=== PATIENT | male | born 1965 | race African-American/Black ===

== ENCOUNTER 2017-06-12 00:33 | Emergency (ER) | payer SELFPAY ==
[2017-06-12] MEDS ORDERED: diphenhydrAMINE HCl 25 MG CAP ONE (01:27)
[2017-06-12 01:39] LABS: INR-International Normal Ratio 1.1; PTT 27.1 SEC (22.9-36.1); Prothrombin Time 14.2 SEC (12.0-14.7)
[2017-06-12 01:43] LABS: Alcohol Less than 10 mg/dL (Less than 10); Salicylate Less than 8.0 mg/dL (15.0-30.0)
[2017-06-12 01:43] LABS: Cocaine Metabolite Screen Detected (NotDetected); Methamphetamine Detected (NotDetected); Opiate Screen Not Detected (NotDetected); Phencyclidine (PCP) Not Detected (NotDetected); THC/Cannabinoid Screen Not Detected (NotDetected)
[2017-06-12 01:44] LABS: Amphetamine Not Detected (NotDetected); Barbiturates Screen Not Detected (NotDetected); Benzodiazepine Screen Not Detected (NotDetected); Medtox Control Line Valid? VALID (VALID); Methadone Not Detected (NotDetected); Oxycodone Screen Not Detected (NotDetected); Tricyclic Screen Not Detected (NotDetected)
[2017-06-12 01:45] LABS: ALT (SGPT) 15 U/L (8-55); AST (SGOT) 20 U/L (5-34); Albumin 3.7 g/dL (3.5-5.0); Alkaline Phosphatase 69 U/L (40-150); Anion Gap 12 mmol/L (10-20); BUN (Urea Nitrogen) 12 mg/dL (8.4-25.7); Bilirubin, Total 0.3 mg/dL (0.2-1.2); Calc. Creatinine Clearance 0 mL/min (70-130); Calcium 8.6 mg/dL (7.8-10.44); Carbon Dioxide 25 mmol/L (22-29); Chloride 108 mmol/L (98-107); Estimated GFR-MDRD Greater than 90; Globulin 3.5 g/dL (2.4-3.5); Glucose 92 mg/dL (70-105); Potassium 3.3 mmol/L (3.5-5.1); Protein, Total 7.2 g/dL (6.0-8.3); Sodium 142 mmol/L (136-145)
[2017-06-12 01:45] LABS: Clarity Clear (Clear)
[2017-06-12 01:47] LABS: Bilirubin Small (Negative); Blood, Urine Trace (Negative); Glucose, Urine (Dipstick) Negative (Negative); Icto Negative (Negative); Leukocyte Negative (Negative); Nitrite Negative (Negative); Protein, Urine (Dipstick) 30 mg/dL (Neg-Trace); Specific Gravity, Urine 1.028 (1.002-1.036); pH, Urine 5.5 (5.0-9.0)
[2017-06-12 01:49] LABS: Hemoglobin 11.9 g/dL (14.0-18.0); Lymphocytes 30 % (21-51); MDiff Complete? YES; Mean Corpuscular HGB CONC 32.9 g/dL (32.0-36.0); Mean Corpuscular Hemoglobin 28.8 pg (27.0-31.0); Mean Corpuscular Volume 87.6 fl (80.0-94.0); Mean Platelet Volume 7.9 fL (7.4-10.4); Metamyelocyte 1 % (0-0); Monocytes 6 % (0-10); Neutrophil 50 % (42-75); PLT Morphology Comment Appears Adequate; Platelet Count 203 thou/uL (130-400); RBC Distribution Width 13.3 % (11.5-14.5); Reactive Lymphocytes 13 % (0-10); Red Blood Cell (RBC) Count 4.12 mill/uL (4.70-6.10); White Blood Cell (WBC) Count 5.6 thou/uL (4.8-10.8)
[2017-06-12 01:49] LABS: Bacteria/HPF None Seen HPF (None Seen); Crystals/HPF None Seen HPF (Negative); Hyaline Casts/LPF NONE SEEN LPF (0-3 Hyaline); Other Casts/LPF None Seen LPF (0-3 Hyaline); Other Microscopic Description N; Oval Fat Bodies/HPF None Seen HPF (None Seen); Renal Epithelial None Seen HPF (0-3); Sperm/HPF None Seen HPF (None Seen); Squamous Epithelial 0-3 HPF (0-3); Transitional Epithelial NONE SEEN HPF (0-3); Trichomonas/HPF None Seen HPF (None Seen); WBC/HPF 0-3 HPF (0-3)
[2017-06-12 02:28] LABS: Acetaminophen Less than 6.0 mcg/mL (6.0-30.0)
[2017-06-12 17:20] LABS: HIV (1/2) Antibody/Antigen Non-Reactive (NonReactive); HIV 1/2 INDEX 0.08 S/CO (<1.00)
== END 2017-06-12 05:59 | disposition home or self-care (01) ==
LOC: MADERS 00:33
DX: F14.10 Cocaine abuse, uncomplicated (principal); F15.10 Other stimulant abuse, uncomplicated; E87.6 Hypokalemia; R31.9 Hematuria, unspecified; F17.210 Nicotine dependence, cigarettes, uncomplicated
CPT/HCPCS: 36415; 80053; 80306; 80307; 81001; 85025; 85610; 85730; 87086; 87389; 99285

== ENCOUNTER 2017-07-01 02:05 | Emergency (ER) | payer SELFPAY | END 2017-07-01 05:48 | disposition home or self-care (01) | LOC: MADERS 02:05 | DX: Z11.4 Encounter for screening for human immunodeficiency virus [HIV] (principal); F17.210 Nicotine dependence, cigarettes, uncomplicated | CPT/HCPCS: 99283 ==

== ENCOUNTER 2017-07-12 22:22 | Emergency (ER) | payer SELFPAY ==
--- NOTE | 2017-07-13 08:53 | CT ---
PRELIMINARY REPORT/[facility]/EMERGENCY AFTER HOURS PROCEDURE: EXAM: CT Lumbar Spine Without Intravenous Contrast EXAM DATE/TIME: 07/13/2017 12:22 AM CLINICAL HISTORY: 52 years old, male; Pain; Low back pain TECHNIQUE: Axial computed tomography images of the lumbar spine without intravenous contrast. Coronal and sagittal reformatted images were created and reviewed. COMPARISON: No relevant prior studies available. FINDINGS: Vertebrae: No evidence of acute fracture. Chronic fracture left L2 transverse process. Discs/spinal canal/neural foramina: Minimal-mild degenerative disc disease L3-4. Mild bilateral face t sclerosis L3-4, L4-5 and L5-S1. Mild-moderate degenerative changes involving bilateral sacral paige c joints. No spinal canal stenosis. Soft tissues: Unremarkable. 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 IMPRESSION: 1. No evidence of acute fracture. 2. Chronic fracture left L2 transverse process. 3. Degenerative changes involving the lumbar spine and pelvis as described above. Thank you for allowing us to participate in the care of your patient. Dictated and Authenticated by: Angeline Wyatt MD 07/13/2017 1:26 AM Central Time ([place] \T\ [place]) FINAL REPORT CT LUMBAR SPINE WITHOUT CONTRAST: FINDINGS: Lumbar vertebrae maintain normal height and alignment. Disk spaces are preserved. Mild degenerativ e osteophytes are seen from the lumbar vertebrae. Broad-based disk bulge is seen at L2-L3, L3-L4, L 4-L5, and L5-S1. No focal protrusion. I am in agreement with the preliminary report. POS: [facility]
--- NOTE | 2017-07-13 08:55 | CT ---
PRELIMINARY REPORT/[facility]/EMERGENCY AFTER HOURS PROCEDURE: EXAM: CT Thoracic Spine Without Intravenous Contrast EXAM DATE/TIME: 07/13/2017 12:19 AM CLINICAL HISTORY: 52 years old, male; Pain; Pain in thoracic spine TECHNIQUE: Axial computed tomography images of the thoracic spine without intravenous contrast. Coronal and sagittal reformatted images were created and reviewed. COMPARISON: No relevant prior studies available. FINDINGS: Vertebrae: No evidence of acute fracture. Mild dextroscoliosis upper-mid thoracic spine. Discs/spinal canal/neural foramina: Minimal multilevel degenerative changes thoracic spine. No spina l canal stenosis. Soft tissues: Unremarkable. IMPRESSION: No evidence of acute fracture. Thank you for allowing us to participate in the care of your patient. Dictated and Authenticated by: Angeline Wyatt MD 07/13/2017 1:32 AM Central Time ([place] \T\ [place]) FINAL REPORT CT THORACIC SPINE: FINDINGS: Multiple axial tomograms obtained through the thoracic spine with multiplanar reconstruction. There is a slight scoliotic curvature of the upper thoracic spine, with convexity to the right, at t he T4-T5 level, measured in the 14 degree range. There are degenerative changes noted with osteophy yvonne from the thoracic vertebrae. There is disk narrowing and degenerative disk change. Posterior a lignment is preserved. No acute fracture. I am in agreement with the preliminary report. POS: [facility]
== END 2017-07-13 01:50 | disposition home or self-care (01) ==
LOC: MADERS 22:22
DX: Z00.00 Encounter for general adult medical examination without abnormal findings (principal); F17.210 Nicotine dependence, cigarettes, uncomplicated
CPT/HCPCS: 72128; 72131

== ENCOUNTER → 2017-08-13 | Emergency (ER) | payer SELFPAY | LOC: MADERS 23:36 | DX: F29 Unspecified psychosis not due to a substance or known physiological condition (principal); F17.210 Nicotine dependence, cigarettes, uncomplicated | CPT/HCPCS: 99284 ==

== ENCOUNTER 2018-08-12 23:32 | Emergency (ER) | payer SELFPAY | END 2018-08-13 | disposition home or self-care (01) | LOC: MADERS 23:32 | DX: Z03.89 Encounter for observation for other suspected diseases and conditions ruled out (principal); F17.210 Nicotine dependence, cigarettes, uncomplicated | CPT/HCPCS: 99283 ==

== ENCOUNTER 2018-10-04 03:03 | Emergency (ER) | payer SELFPAY | END 2018-10-04 05:26 | disposition home or self-care (01) | LOC: MADERS 03:03 | DX: F14.10 Cocaine abuse, uncomplicated (principal) | CPT/HCPCS: 99284 ==